=== PATIENT | female | born 1975 | race Caucasian/White ===

== ENCOUNTER 2021-04-11 00:09 | Emergency (ER) | payer OTHER ==
[~2021-04-11] VITALS: Ht 162.6 cm; Wt 113.4 kg
[2021-04-11 00:18] VITALS: BP 135/79
--- NOTE | 2021-04-11 00:21 | NUR ---
TO LOBBY A/W BED AMBULATORY
--- NOTE | 2021-04-11 01:20 | NUR ---
SEEN AND EXAMINED BY JORJE
--- NOTE | 2021-04-11 02:00 | NUR ---
MEDICATED PER [facility] ORDER, TOLERATED WELL.
[2021-04-11] MEDS ORDERED: KETOROLAC 30 MG/ML VIAL IM ONE (02:05)
[2021-04-11] MEDS ORDERED: IBUP-2213 PO (02:07)
[2021-04-11] MEDS ORDERED: CYCL-654 PO (02:07)
[2021-04-11] MEDS ORDERED: DICL100G5 TP (02:07)
[2021-04-11 02:25] VITALS: BP 119/80
--- NOTE | 2021-04-11 02:25 | NUR ---
Patient discharged with v/s stable. Written and verbal after care instructions given and explained. Patient alert, oriented and verbalized understanding of instructions. Ambulatory with steady gait. All questions addressed prior to discharge. ID band removed. Patient advised to follow up with PMD. Rx of IBUPROFEN, DICLOFENAC, given. Patient educated on indication of medication including possible reaction and side effects. Opportunity to ask questions provided and answered.
== END 2021-04-11 02:25 | disposition home or self-care (01) ==
LOC: MED 00:09
DX: R10.9 Unspecified abdominal pain (principal)
CPT/HCPCS: 81002; 81025; 96372; 99283; J1885

== ENCOUNTER 2021-12-24 23:12 | Emergency (ER) | payer OTHER ==
[~2021-12-24] VITALS: Ht 162.6 cm; Wt 115.2 kg
[~2021-12-24 23:12] MED LIST: CYCL-654 PO; DICL100G5 TP; IBUP-2213 PO
[2021-12-24 23:31] VITALS: BP 135/93
--- NOTE | 2021-12-24 23:37 | NUR ---
TO LOBBY FOLLOWING TRIAGE
--- NOTE | 2021-12-25 01:10 | NUR ---
PT TAKEN TO ER BED 8
--- NOTE | 2021-12-25 01:14 | NUR ---
MD OBRIEN AT BEDSIDE
--- NOTE | 2021-12-25 01:27 | NUR ---
46/F BIB SELF C/O SMALL BUMBS ON ARACELI HANDS X1H . PATIETN STATED THAT THEY ARE PAINLESS. DENEIS IRRITATION, ITCHINESS, SOB, DISCOMFORT AT THIS TIME. BUMPS ARE SMALL AND RED. PATIETN PLACED IN BED AND ON O2 MONITOR. DOESNT APPEAR TO BE IN DISTRESS. RR EVENA ND UNLABORED. BED LOW AND LOCKED. SIDE RAIL UP FOR SAFETY. ALL NEEDS MET. PMHX HTN MEDS LISINOPRIL NKA
[2021-12-25] MEDS ORDERED: HYD2.5O TP (01:30)
[2021-12-25 01:39] VITALS: BP 113/81
--- NOTE | 2021-12-25 01:39 | NUR ---
Patient discharged with v/s stable. Written and verbal after care instructions given and explained. Patient alert, oriented and verbalized understanding of instructions. Ambulatory with steady gait. All questions addressed prior to discharge. ID band removed. Patient advised to follow up with PMD. Rx of HYDROCORTISONE given.
--- NOTE | 2021-12-25 01:42 | NUR ---
Chart checked and completed.
== END 2021-12-25 01:39 | disposition home or self-care (01) ==
LOC: MED 23:12
DX: R21 Rash and other nonspecific skin eruption (principal); F12.90 Cannabis use, unspecified, uncomplicated
CPT/HCPCS: 99282